=== PATIENT | male | born 1955 | race Native Hawaiian/Other Pacific Islander ===

== ENCOUNTER 2018-09-21 16:50 | Emergency (ER) | payer OTHER ==
[~2018-09-21] VITALS: Ht 177.8 cm; Wt 121.6 kg
[2018-09-21 17:49] LABS: PLATELET COUNT 85 K/uL (142-355)
[2018-09-21 18:47] LABS: PARTIAL THROMBOPLASTIN TIME 23.8 SECONDS (24.5-33.6)
[2018-09-21 19:05] VITALS: BP 151/86; TEMP 97.8
== END 2018-09-21 19:05 | disposition home or self-care (01) ==
LOC: ED 16:50 → EDSEX 16:50 → ED 19:05
DX: D69.6 Thrombocytopenia, unspecified (principal)
CPT/HCPCS: 36415; 85027; 85240; 85245; 85610; 85730; 99283

== ENCOUNTER 2019-08-31 07:52 | Outpatient (CLI) | payer OTHER | END 2019-08-31 19:28 | disposition home or self-care (01) | LOC: NM 07:52 | DX: Z01.810 Encounter for preprocedural cardiovascular examination (principal); E11.69 Type 2 diabetes mellitus with other specified complication | CPT/HCPCS: A9500; J2785 ==